=== PATIENT | female | born 1990 ===

== ENCOUNTER 2018-12-05 14:55 | Emergency (ER) | payer OTHER ==
[~2018-12-05] VITALS: Ht 162.6 cm; Wt 63.5 kg
[2018-12-05] MEDS ORDERED: KETO10TA2 PO (21:09)
[2018-12-05] MEDS ORDERED: MEDROLPACK PO (21:09)
== END 2018-12-05 22:06 ==
LOC: ER 14:55
DX: R10.2 Pelvic and perineal pain (principal); N39.8 Other specified disorders of urinary system